=== PATIENT | female | born 2005 | race Two or more races ===

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

== ENCOUNTER 2024-12-30 14:09 | Emergency (ER) | payer MEDICAID, OTHER ==
[~2024-12-30] VITALS: Ht 167.6 cm; Wt 68.0 kg
[2024-12-30 14:18] VITALS: TEMP 97.9
[2024-12-30] MEDS ORDERED: PROCHLORPERAZINE EDISYLATE 10 MG/2 ML VIAL ONE (14:50)
[2024-12-30] MEDS ORDERED: PROCHLORPERAZINE EDISYLATE 10 MG/2 ML VIAL IM ONE (15:00)
[2024-12-30] MEDS: IV NS 0.9% 1,000 ML BAG IV ONE (15:10)
[2024-12-30] MEDS: PROCHLORPERAZINE EDISYLATE 10 MG/2 ML VIAL IVP ONE (15:19)
[2024-12-30] MEDS ORDERED: IBUP-1490 PO (16:41)
[2024-12-30] MEDS ORDERED: CYCL5TAB PO (16:41)
[2024-12-30] MEDS ORDERED: ONDA4TAB5 PO (16:41)
[2024-12-30] MEDS ORDERED: DICL100G34 TP (16:41)
[2024-12-30 16:56] VITALS: BP 122/66; O2SAT 99
== END 2024-12-30 16:57 | disposition home or self-care (01) ==
LOC: ER 14:09
DX: M54.2 Cervicalgia (principal); R51.9 Headache, unspecified; M25.552 Pain in left hip; M25.551 Pain in right hip; V43.62XA Car passenger injured in collision with other type car in traffic accident, initial encounter; Y93.89 Activity, other specified; Y92.488 Other paved roadways as the place of occurrence of the external cause; Y99.8 Other external cause status
CPT/HCPCS: 99284; 96374; 96361; 96375; 73521; J0780; J1200; J7030